=== PATIENT | male | born 1970 | race Two or more races ===

== ENCOUNTER 2022-06-23 01:03 | Inpatient (IN) | payer MEDICAID, OTHER ==
[~2022-06-23] VITALS: Ht 165.1 cm; Wt 66.7 kg
[2022-06-23] MEDS ORDERED: ONDANSETRON HCL/PF 4 MG/2 ML VIAL ONE (01:35)
--- NOTE | 2022-06-23 01:38 | NUR ---
SALINE LOCK AT L AC G20. BLOOD DRAWN AND SENT TO LAB.
--- NOTE | 2022-06-23 01:40 | NUR ---
COVID SWAB COLLECTED AND SENT TO LAB.
--- NOTE | 2022-06-23 01:48 | NUR ---
ARMEN FROM [facility] TO ER BED 5. AAOX4. NOT IN RESP DISTRESS BUT NOTED WITH O2 SAT OF 89% ON RA. PLACED ON O2 VIA NC @ 2LPM NOW SATTING AT 98%. PT WAS BROUGHT IN FOR FEVER WHICH WAS REPORTED @ 101 AT THE [facility], PT WAS GIVEN TYLENOL AND NOW THE TEMP IS 99 ORALLY. PT WAS NOTED TACHYCARDIC IN THE 120s. PT ALSO REPORTS HAVING ABDOMINAL PAIN AND VOMITING. PT WAS PRESENTED WITH ROBERTS CATH INPLACE WHICH WAS CHANGED ON THURSDAY ACCORDING TO THE PATIENT. URINE WAS NOTED CLODY, WITH SEDIMENT AND FOULING SMELLING. HE ALSO HAVE A COLOSTOMY UPON PRESENT, STOMA APPEARS RED AND MOIST. IV SITE WAS STARTED ON THE L WRIST W/ 20G. BLOOD DRAWN AND SENT TO LAB. WAS AT THE BEDSIDE FOR EVAL. PT IS ON MONITOR
[2022-06-23] MEDS ORDERED: PIPERACILLIN /TAZOBACTAM 3.375 G VIAL IV ONE (01:58)
[2022-06-23] MEDS ORDERED: PIPERACILLIN /TAZOBACTAM 3.375 G in IV D5W 50 ML IV ONE (02:00)
[2022-06-23] MEDS ORDERED: IV LR 1000 ML 1,000 ML BAG IV ONE (02:00)
[2022-06-23 02:10] LABS: EOSINOPHILS % (AUTO) 1.3 % (0.0-6.0); HEMATOCRIT 43 % (39-51); HEMOGLOBIN 13.7 g/dL (13.5-17.5); LYMPHOCYTES # (AUTO) 0.5 K/uL (0.8-4.8); LYMPHOCYTES % (AUTO) 3.9 % (20.0-44.0); MEAN CORPUSCULAR HGB CONC 32 g/dl (31.0-36.0); MEAN CORPUSCULAR VOLUME 85 fL (80-96); MONOCYTES # (AUTO) 0.1 K/uL (0.1-1.30); MONOCYTES % (AUTO) 0.9 % (2.0-12.0); NEUTROPHILS % (AUTO) 93.9 % (43.0-81.0); PLATELET COUNT (AUTO) 250 K/uL (150-450); RED BLOOD CELL COUNT(AUTO) 5.03 MIL/uL (4.5-6.0); WHITE BLOOD COUNT (AUTO) 11.7 K/uL (4.3-11.0)
[2022-06-23 02:20] LABS: COLOR,URINE DARK YELLOW (YELLOW)
[2022-06-23 02:21] LABS: PH,URINE 8.5 (5.0-8.0); PROTEIN,URINE 3+ mg/dl (NEGATIVE); UGLUCOSE 4+ mg/dL (NEGATIVE)
[2022-06-23 02:22] LABS: BILIRUBIN,URINE NEGATIVE (NEGATIVE); LEUKOCYTE ESTERASE ,URINE LARGE (NEGATIVE); NITRITE, URINE NEGATIVE (NEGATIVE); UROBILINOGEN,URINE 0.2 EU/dL (0.2)
[2022-06-23 02:23] LABS: BACTERIA,URINE Moderate /HPF (None Seen); CALCIUM, SERUM 9.2 mg/dL (8.5-10.1); CARBON DIOXIDE 21 mmol/L (21-32); CHLORIDE 103 mmol/L (98-107); CREATININE 2.2 mg/dL (0.6-1.3); GLUCOSE 320 mg/dL (74-106); POTASSIUM 3.7 mmol/L (3.5-5.1); SODIUM SERUM 135 mmol/L (136-145); SQUAMOUS EPITHELIAL CELL,UR Many /HPF (None Seen); UREA NITROGEN, BLOOD 46 mg/dL (7-18); WBC,URINE 21-50 /HPF (0-3)
[2022-06-23] MEDS ORDERED: ONDANSETRON HCL/PF 4 MG/2 ML VIAL IV ONE (02:30)
[2022-06-23 02:43] LABS: ALBUMIN 3.2 g/dL (3.4-5.0); ASPARTATE AMINOTRANSFERASE 21 U/L (15-37); BILIRUBIN,DIRECT 0.1 mg/dL (0.0-0.2); BILIRUBIN,TOTAL 0.2 mg/dL (0.2-1.0)
[2022-06-23 02:59] LABS: ALANINE AMINOTRANSFERASE 29 U/L (12-78); ALKALINE PHOSPHATASE 274 U/L (46-116); TOTAL PROTEIN, SERUM 8.6 g/dL (6.4-8.2)
[2022-06-23] MEDS ORDERED: ASPIRIN 325 MG TABLET ONE (03:26)
[2022-06-23] MEDS ORDERED: ASPIRIN 325 MG TABLET PO ONE (03:30)
--- NOTE | 2022-06-23 03:34 | NUR ---
room 321-2
--- NOTE | 2022-06-23 03:51 | NUR ---
report given to amos moore fo grover
--- NOTE | 2022-06-23 04:18 | NUR ---
ordered to change cath but cath of a suprapubic payne cath.
[2022-06-23 04:30] VITALS: BP 124/78
--- NOTE | 2022-06-23 04:30 | NUR ---
RN ADMITTING NOTES ADMITTED A 51/Y MALE TO UNIT 321-2 @ VIA GURNEY ACCOMPANIED BY TRANSPORTER W/ DX SEPSIS & NSTEMI. PT IS BEDBOUND. A/O X 4, ABLE TO MAKE NEEDS KNOWN. ORIENTED TO STAFF AND UNIT. PT ON NASAL CANULA 4LPM OF O2, TOLERATING WELL, BREATHING EVEN AND UNLABORED @ THIS TIME. PT W/ IV ACCESS PRESENT ON L WRIST @ 20G SL, PATENT, INTACT AND FLUSHES WELL WITH NO S/S OF INFILTRATION @ SITE NOTED. LUNG SOUND CLEAR. ABDOMEN IS SOFT AND NON TENDER. PT HAS EXTERNAL MONITOR W/ CURRENT READING OFSINUS TACHY. SKIN IS WARM & DRY. PHOTOS OF SKIN ON PY CHART. IS TAKEN & FILED ON PT CHART. BELONGINGS CHECKED AND SIGNED FOR. NEW ID BAND IS GIVEN AND WORN BY PATIENT. SAFETY MEASURES INITIATED. BED PLACED IN LOWEST AND LOCKED POSITION, SIDE RAILS UP X2, BEDSIDE TABLE AND CALL LIGHT IS EASY REACH. BEDALARM IS ON. WWILL CONTINUE TO MONITOR PATIENT.
--- NOTE | 2022-06-23 04:37 | NUR ---
pt transported to unit on [facility] with EMT and RN at bedside with acls protocol. nad noted.
[2022-06-23] MEDS ORDERED: ACETAMINOPHEN 325 MG TABLET PO PRN ×2 (06:30→09:30)
[2022-06-23] MEDS ORDERED: DEXTROSE 50%-WATER 50 ML DISP.SYRIN IV PRN (06:30)
[2022-06-23] MEDS ORDERED: ONDANSETRON HCL/PF 4 MG/2 ML VIAL IVP PRN (06:30)
--- NOTE | 2022-06-23 07:16 | NUR ---
RN CLOSING NOTES PT IS AWAKE, A/O X 4, FRENCH SPEAKING, RESPONSIVE AND FOLLOWS VERBAL COMMAND. PT ON NASAL CANULA W/ 4LPM O2, TOLERATING WELL, BREATHING EVEN AND UNLABORED AT THIS TIME. PT IS W/ IV ACCESS L WRIST #20G SALINE LOCK, PATENT, INTACT AND FLUSHES WELL W/ NO S/S OF INFILTRATION. PT IS ON TELE MONITOR W/ CURRENT READING SINUS TACHYCHARDIA HR 104. MEDICATION ADMINISTERED PER MD'S ORDER. SAFETY MEASURES IS IN PLACE. BED IN ITS LOWEST AND LOCKED POSITION. SIDE RAILS UP X 2 . BEDSIDE TABLE AND CALL LIGHT IS EASY REACH. WILL ENDORSE TO THE NEXT SHIFT FOR CONTINUITY OF CARE.
[2022-06-23 07:20] VITALS: BP 109/56
--- NOTE | 2022-06-23 07:40 | NUR ---
RN OPENING NOTES PT AWAKE IN BED, A/O X 3-4,RESPONSIVE AND FOLLOWS VERBAL COMMAND. PT ON NASAL CANULA W/ 4LPM O2, TOLERATING WELL, BREATHING EVEN AND UNLABORED AT THIS TIME. PT IS W/ IV ACCESS L WRIST #20G SALINE LOCK, PATENT, INTACT AND FLUSHES WELL W/ NO S/S OF INFILTRATION. PT IS ON TELE MONITOR W/ CURRENT READING SR HR 100. SAFETY MEASURES IS IN PLACE. BED IN ITS LOWEST AND LOCKED POSITION. SIDE RAILS UP X 2 . BEDSIDE TABLE AND CALL LIGHT IS EASY REACH. WILL CONTINUE TO MONITOR.
[2022-06-23] MEDS ORDERED: CRAN425C6 PO (07:42)
[2022-06-23] MEDS ORDERED: ASPI-1169 PO (07:42)
[2022-06-23] MEDS ORDERED: GEMF600T90 PO (07:42)
[2022-06-23] MEDS ORDERED: ALOG25TA2 PO (07:42)
[2022-06-23] MEDS ORDERED: GLUC1KIT IM (07:42)
[2022-06-23] MEDS ORDERED: MULT-447 PO (07:42)
[2022-06-23] MEDS ORDERED: ASCO-352 PO (07:42)
[2022-06-23] MEDS ORDERED: POLY17PO4 PO (07:42)
[2022-06-23] MEDS ORDERED: CHOL100043 PO (07:42)
[2022-06-23] MEDS ORDERED: ACET-868 PO (07:42)
[2022-06-23] MEDS ORDERED: INSU100I26 SQ (07:42)
[2022-06-23] MEDS ORDERED: PANT40TA2 PO (07:42)
[2022-06-23 08:00] VITALS: BP 102/66
--- NOTE | 2022-06-23 08:23 | NUR ---
RN NOTES RECEIVED CRITICAL VALUES FOR TROPONIN LEVEL OF 203, DR. MAGALLON NOTIFIED. AWAITS FURTHER ORDER.
[2022-06-23] MEDS: BLOOD SUGAR DIAGNOSTIC 1 EACH STRIP IN SCH ×4 (08:38→21:37)
[2022-06-23] MEDS ORDERED: ASPIRIN 81 MG TAB.CHEW PO SCH (09:00)
[2022-06-23] MEDS ORDERED: PANTOPRAZOLE 40 MG VIAL IV SCH (09:00)
[2022-06-23] MEDS: ZOSYN IVPB 2.25 G in IV D5W 50ml IV SCH ×3 (09:31→20:29)
[2022-06-23] MEDS: HEPARIN SODIUM, PORCINE 5000 UNITS/1 ML VIAL SQ SCH ×2 (09:49→21:36)
[2022-06-23] MEDS: IV NS 0.9% 1,000 ML IV PRN (10:03)
[2022-06-23] MEDS: INSULIN GLARGINE, 100 UNIT/ML CARTRIDGE SQ SCH (10:54)
[2022-06-23 12:00] VITALS: BP 117/83
--- NOTE | 2022-06-23 12:47 | NUR ---
RN NOTES URINE SAMPLE COLLECTED, STORED IN THE [facility]. NOTIFIED LABORATORY FOR NETWORK TECHNOLOGY INSTRUCTOR
[2022-06-23] MEDS: INSULIN REGULAR, HUMAN 100 UNIT/ML 3 ML VIAL SQ PRN ×3 (12:59→21:47)
[2022-06-23 13:42] LABS: BILIRUBIN,URINE NEGATIVE (NEGATIVE); COLOR,URINE YELLOW (YELLOW); LEUKOCYTE ESTERASE ,URINE 2+ (NEGATIVE); NITRITE, URINE NEGATIVE (NEGATIVE); PROTEIN,URINE 2+ mg/dl (NEGATIVE); UGLUCOSE NEGATIVE (NEGATIVE); UROBILINOGEN,URINE 0.2 EU/dL (0.2)
[2022-06-23 13:56] LABS: BACTERIA,URINE Moderate /HPF (None Seen); SQUAMOUS EPITHELIAL CELL,UR Moderate /HPF (None Seen); WBC,URINE 21-50 /HPF (0-3)
[2022-06-23 14:50] LABS: CREATININE, URINE 37.4 MG/DL (30.0-125.0)
[2022-06-23 16:00] VITALS: BP 96/71
--- NOTE | 2022-06-23 16:26 | NUR ---
RN NOTES BLADDER SCAN DONE WITH 0 ML OUTPUT. SUPRAPUBIC OUTPUT IS 900ML AT THIS TIME. WILL CONTINUE TO MONITOR.
--- NOTE | 2022-06-23 18:25 | NUR ---
RN CLOSING NOTES PT IS AWAKE, A/O X 4, BANGLADESHI SPEAKING, RESPONSIVE AND FOLLOWS VERBAL COMMAND. PT ON NASAL CANULA W/ 4LPM O2, TOLERATING WELL, BREATHING EVEN AND UNLABORED AT THIS TIME. PT IS W/ IV ACCESS L WRIST #20G SALINE LOCK, PATENT, INTACT AND FLUSHES WELL W/ NO S/S OF INFILTRATION. ALL MEDS GIVEN. DRESSING CHANGE, OSTOMY DRESSING CHANGED. SAFETY MEASURES IS IN PLACE. BED IN ITS LOWEST AND LOCKED POSITION. SIDE RAILS UP X 2 . BEDSIDE TABLE AND CALL LIGHT IS EASY REACH. WILL ENDORSE TO THE NEXT SHIFT FOR CONTINUITY OF CARE.
[2022-06-23 20:00] VITALS: BP_SYST 106; BP_SYST 120; BP_DIAS 67; BP_DIAS 68
--- NOTE | 2022-06-23 20:20 | NUR ---
BOILER OPERATOR OPENING NOTE PATIENT SLEEPING IN BED, EASILY AWAKENED, PATIENT ALERT/ORIENTED X 4, MALAY SPEAKING. PATIENT STABLE ON 4 L O2 VIA NASAL CANNULA, NO S/S OF DISTRESS OR SOB NOTED, BREATHING EVEN AND UNLABORED. IV ACCESS ON LEFT WRIST #20G INTACT AND INFUSING NS @ 75 ML/HR. OSTOMY BAG IN PLACE. SUPRAPUBIC CATHETER IN PLACE AND DRAINING URINE BY GRAVITY. SAFETY MEASURES IN PLACE: CALL LIGHT WITHIN REACH, SIDE RAILS UP X 2, BED LOCKED IN LOWEST POSITION, HOB ELEVATED, BED ALARM ON. WILL CONTINUE TO MONITOR PATIENT
[2022-06-23] MEDS: ATORVASTATIN 10 MG TABLET PO SCH (21:33)
[2022-06-24] VITALS (8 sets, daily range): BP systolic 111–170; BP diastolic 71–90
[2022-06-24] MEDS: IV NS 0.9% 1,000 ML IV PRN ×2 (00:03→22:42)
[2022-06-24] MEDS: ZOSYN IVPB 2.25 G in IV D5W 50ml IV SCH ×4 (02:31→19:52)
[2022-06-24 05:41] LABS: BASOPHILS # (AUTO) 0.1 K/uL (0.0-0.2); BASOPHILS % (AUTO) 0.4 % (0.0-2.0); EOSINOPHILS % (AUTO) 2.1 % (0.0-6.0); HEMATOCRIT 35 % (39-51); HEMOGLOBIN 11.1 g/dL (13.5-17.5); LYMPHOCYTES # (AUTO) 1.6 K/uL (0.8-4.8); LYMPHOCYTES % (AUTO) 9.6 % (20.0-44.0); MEAN CORPUSCULAR HGB CONC 32 g/dl (31.0-36.0); MEAN CORPUSCULAR VOLUME 86 fL (80-96); MONOCYTES # (AUTO) 0.6 K/uL (0.1-1.30); MONOCYTES % (AUTO) 3.7 % (2.0-12.0); NEUTROPHILS # (AUTO) 13.8 K/uL (1.8-8.9); NEUTROPHILS % (AUTO) 84.2 % (43.0-81.0); PLATELET COUNT (AUTO) 227 K/uL (150-450); RED BLOOD CELL COUNT(AUTO) 4.11 MIL/uL (4.5-6.0); WHITE BLOOD COUNT (AUTO) 16.4 K/uL (4.3-11.0)
[2022-06-24 06:15] LABS: CALCIUM, SERUM 8.6 mg/dL (8.5-10.1); CREATININE 1.8 mg/dL (0.6-1.3); MAGNESIUM 2.1 mg/dL (1.8-2.4); POTASSIUM 3.4 mmol/L (3.5-5.1)
--- NOTE | 2022-06-24 06:26 | NUR ---
BUREAU DIRECTOR CLOSING NOTE PATIENT AWAKE IN BED, ALERT/ORIENTED X 4, PT ABLE TO MAKE NEEDS KNOWN, PRIMARILY PASHTO SPEAKING. PATIENT STABLE ON 4 LPM OF O2 VIA NASAL CANNULA, NO S/S OF DISTRESS OR SOB NOTED, BREATHING EVEN AND UNLABORED. PATIENT ON EXTERNAL LABORATORY ASSOCIATE READING SINUS RHYTHM, HR: 82. NO SIGNIFICANT CHANGES THIS SHIFT, PT SLEPT WELL THROUGH THE NIGHT, MEDICATIONS GIVEN ORDERED, PT NEEDS MET THROUGH THE NIGHT. COLOSTOMY BAG CHANGED THIS AM. SUPRAPUBIC ROBERTS INTACT AND DRAINING YELLOW URINE BY GRAVITY, OUTPUT 1200 ML. IV ACCESS ON LEFT WRIST #20G INTACT AND INFUSING NS @ 75 ML/HR. CRITICAL LAB OF TROPONIN 2240, NOTIFIED SERVER CASHIER MD CELESTINE PEDRAZA, AWAITING ORDERS, WILL ENDORSE TO SERG RN. SAFETY MEASURES IN PLACE: CALL LIGHT WITHIN REACH, SIDE RAILS UP X 2, BED LOCKED IN LOWEST POSITION, HOB ELEVATED, BED ALARM ON. WILL ENDORSE TO DAYSHIFT RN FOR CONTINUITY OF CARE
[2022-06-24] MEDS: BLOOD SUGAR DIAGNOSTIC 1 EACH STRIP IN SCH ×4 (06:39→18:25)
[2022-06-24] MEDS: INSULIN REGULAR, HUMAN 100 UNIT/ML 3 ML VIAL SQ PRN ×2 (06:42→18:33)
--- NOTE | 2022-06-24 07:15 | NUR ---
HIGH SCHOOL COACH OPENING NOTE PATIENT SLEEPING IN BED, EASILY AROUSED, A/O X 4, MONTENEGRIN SPEAKING, HAND WOODWORKING SANDER HAM TRIMMER. PATIENT STABLE ON 4 L O2 VIA NASAL CANNULA, NO S/S OF DISTRESS OR SOB NOTED, BREATHING EVEN AND UNLABORED. IV ACCESS ON LEFT WRIST #20G INTACT AND INFUSING NS @ 75 ML/HR. OSTOMY BAG IN PLACE. SUPRAPUBIC CATHETER IN PLACE AND DRAINING URINE BY GRAVITY. SAFETY MEASURES IN PLACE: CALL LIGHT WITHIN REACH, SIDE RAILS UP X 2, BED LOCKED IN LOWEST POSITION, HOB ELEVATED, BED ALARM ON. WILL CONTINUE TO MONITOR PATIENT
[2022-06-24] MEDS: PANTOPRAZOLE 40 MG TABLET.DR PO SCH (08:44)
[2022-06-24] MEDS: ASPIRIN 81 MG TAB.CHEW PO SCH (08:44)
[2022-06-24] MEDS: HEPARIN SODIUM, PORCINE 5000 UNITS/1 ML VIAL SQ SCH ×2 (08:54→21:15)
[2022-06-24] MEDS: INSULIN GLARGINE, 100 UNIT/ML CARTRIDGE SQ SCH (09:13)
[2022-06-24] MEDS ORDERED: POTASSIUM CL. PREMIX PERIPHER. 50 ML IV SCH (11:30)
--- NOTE | 2022-06-24 18:34 | NUR ---
NURSE PRACTITIONER MANAGER CLOSING NOTE PATIENT AWAKE IN BED, A/O X 4, PT ABLE TO MAKE NEEDS KNOWN, PRIMARILY MAORI SPEAKING. PATIENT STABLE ON 4 LPM OF O2 VIA NASAL CANNULA, NO S/S OF DISTRESS OR SOB NOTED, BREATHING EVEN AND UNLABORED. PATIENT ON EXTERNAL RIVET HOLE PUNCHER READING SINUS RHYTHM, HR: 85. MEDICATIONS GIVEN ORDERED AND PT'S NEED MET THROUGH THE DAY. COLOSTOMY BAG CHANGED THIS AM. SUPRAPUBIC ROBERTS INTACT AND DRAINING YELLOW URINE BY GRAVITY, OUTPUT 1800 ML. IV ACCESS ON LEFT WRIST #20G INTACT AND INFUSING NS @ 75 ML/HR. SAFETY MEASURES IN PLACE: CALL LIGHT WITHIN REACH, SIDE RAILS UP X 2, BED LOCKED IN LOWEST POSITION, HOB ELEVATED, BED ALARM ON. [facility] FOR [facility]ITY OF CARE Addendum: 06/24/22 at 1839 by LUCÍA MICHELE JR, RN WILL ENDORSED TO MUSIC TYPOGRAPHER NURSE FOR JOSEFA.
--- NOTE | 2022-06-24 19:30 | NUR ---
PERINATAL TECHNICIAN OPENING NOTE PATIENT IN BED, AWAKE; ALERT AND ORIENTED X 4, KOREAN SPEAKING. ON OXYGEN VIA NASAL CANNULA AT 4LPM TOLERATING WELL, NO S/S OF DISTRESS NOTED, BREATHING EVENLY AND UNLABORED. WITH IV ACCESS ON LEFT WRIST G20 INTACT AND PATENT, INFUSING NORMAL SALINE AT 75 ML/HR. COLOSTOMY BAG IN PLACE DRAINING TO SOFT BROWN STOOL; SUPRAPUBIC CATHETER IN PLACE AND DRAINING TO YELLOW COLORED URINE BY GRAVITY; ENCOURAGED VERBALIZATION OF NEEDS; SAFETY MEASURES IMPLEMENTED; CALL LIGHT WITHIN REACH, SIDE RAILS UP X 2, BED LOCKED IN LOWEST POSITION, HOB ELEVATED, BED ALARM ON. WILL CONTINUE TO MONITOR THROUGHOUT SHIFT
[2022-06-24] MEDS: ATORVASTATIN 10 MG TABLET PO SCH (21:15)
[2022-06-25] MEDS: ZOSYN IVPB 2.25 G in IV D5W 50ml IV SCH ×4 (01:38→20:02)
[2022-06-25 05:26] VITALS: BP 159/90
[2022-06-25 06:18] LABS: CALCIUM, SERUM 8.8 mg/dL (8.5-10.1); CREATININE 1.7 mg/dL (0.6-1.3); POTASSIUM 3.5 mmol/L (3.5-5.1)
[2022-06-25] MEDS: INSULIN REGULAR, HUMAN 100 UNIT/ML 3 ML VIAL SQ PRN ×4 (06:26→21:35)
[2022-06-25 06:27] LABS: BASOPHILS # (AUTO) 0.1 K/uL (0.0-0.2); BASOPHILS % (AUTO) 0.6 % (0.0-2.0); EOSINOPHILS % (AUTO) 3.8 % (0.0-6.0); HEMATOCRIT 36 % (39-51); HEMOGLOBIN 11.6 g/dL (13.5-17.5); LYMPHOCYTES # (AUTO) 1.3 K/uL (0.8-4.8); LYMPHOCYTES % (AUTO) 13.3 % (20.0-44.0); MEAN CORPUSCULAR HGB CONC 32 g/dl (31.0-36.0); MEAN CORPUSCULAR VOLUME 86 fL (80-96); MONOCYTES # (AUTO) 0.5 K/uL (0.1-1.30); MONOCYTES % (AUTO) 4.7 % (2.0-12.0); NEUTROPHILS # (AUTO) 7.7 K/uL (1.8-8.9); NEUTROPHILS % (AUTO) 77.6 % (43.0-81.0); PLATELET COUNT (AUTO) 226 K/uL (150-450); RED BLOOD CELL COUNT(AUTO) 4.26 MIL/uL (4.5-6.0)
--- NOTE | 2022-06-25 06:30 | NUR ---
GLOBAL IMPLEMENTATION MANAGER NOTE ACCUCHECK WAS DONE AND PATIENT'S BLOOD SUGAR WAS 222. 4 UNITS OF INSULIN WAS GIVEN PER SLIDING SCALE. PATIENT TOLERATED WELL.
[2022-06-25] MEDS: BLOOD SUGAR DIAGNOSTIC 1 EACH STRIP IN SCH ×4 (06:32→21:33)
--- NOTE | 2022-06-25 06:47 | NUR ---
REAL ESTATE LOAN PROCESSOR CLOSING NOTE PATIENT IN BED; ALERT AND ORIENTED X 4, CROATIAN SPEAKING. ON OXYGEN VIA NASAL CANNULA AT 4LPM TOLERATING WELL WITH NO SIGNS AND SYMPTOMS OF DISTRESS NOTED, BREATHING EVENLY AND UNLABORED; HOOKED TO POLLUTION CONTROL ENGINEER CURRENTLY SINUS RHYTHM 70-80S BPM; WITH IV ACCESS ON LEFT WRIST G20 INTACT AND PATENT INFUSING NORMAL SALINE AT 75 ML/HR; WITH COLOSTOMY BAG IN PLACE DRAINING TO SOFT BROWN STOOL; SUPRAPUBIC CATHETER IN PLACE DRAINING TO YELLOW COLORED URINE; ADMINISTERED MEDICATIONS PRESCRIBED; PATIENT'S NEEDS ATTENDED; MONITORED PATIENT ACCORDINGLY; SAFETY MEASURES IMPLEMENTED; CALL LIGHT WITHIN REACH, SIDE RAILS UP X 2, BED LOCKED IN LOWEST POSITION, HOB ELEVATED, ALARM BED ON; WILL CONTINUE TO MONITOR THROUGHOUT SHIFT
--- NOTE | 2022-06-25 07:30 | NUR ---
PRODUCT TRANSFER PUMPER OPENING NOTES RECEIVED PT IN BED, AWAKE. A/O X 4, ESTONIAN SPEAKER. ABLE TO MAKE NEEDS KNOWN. NO C/O PAIN/DISCOMFORT AT THIS TIME. ON O2 VIA NC AT 4LPM, NO SIGN OF ACUTE RESPIRATORY DISTRESS. ON CRIME LABORATORY ANALYST WITH CURRENT READING OF SR-82, NO SIGN OF CARDIAC DISTRESS. IV ACCESS ON THE LEFT WRIST #20G WITH ONGOING IVF NS AT 75ML/HR INFUSING WELL. WITH SUPRAPUBIC CATHETER DRAINING CLEAR YELLOW URINE. WITH COLOSTOMY AT LLQ OF ABDOMEN. SAFETY MEASURES IN PLACE: BED LOCKED AND IN LOWEST POSITION, CALL LIGHT AND TRAY TABLE WITHIN EASY REACH, SIDE RAILS X 3. WILL CONTINUE TO MONITOR.
[2022-06-25] MEDS: PANTOPRAZOLE 40 MG TABLET.DR PO SCH (07:50)
[2022-06-25 08:00] VITALS: BP 158/94
--- NOTE | 2022-06-25 08:05 | NUR ---
RN NOTES PT VERBALIZED THAT HIS HEAD AND NECK IS PAINFUL, TYLENOL 650MG PO PRN GIVEN AT 0801. WILL CONTINUE TO MONITOR. Addendum: 06/25/22 at 1613 by Citlalli Victor RN DOCUMENTATION ERROR, DISREGARD.
[2022-06-25] MEDS: ASPIRIN 81 MG TAB.CHEW PO SCH (08:36)
[2022-06-25] MEDS: HEPARIN SODIUM, PORCINE 5000 UNITS/1 ML VIAL SQ SCH ×2 (08:38→21:07)
[2022-06-25] MEDS: INSULIN GLARGINE, 100 UNIT/ML CARTRIDGE SQ SCH (09:41)
[2022-06-25 12:00] VITALS: BP 155/95
[2022-06-25] MEDS: IV NS 0.9% 1,000 ML IV PRN (15:22)
[2022-06-25 16:00] VITALS: BP 148/93
--- NOTE | 2022-06-25 18:35 | NUR ---
DISTRICT CAPTAIN CLOSING NOTES PT RESTING IN BED. A/O X 4, PERSIAN SPEAKER. ABLE TO MAKE NEEDS KNOWN. DID NOT C/O PAIN/DISCOMFORT WITHIN THE SHIFT. ON O2 VIA NC AT 4LPM, TOLERATED WELL. ON PLASTICATOR WITH CURRENT READING OF SR-78, NO SIGN OF CARDIAC DISTRESS. IV ACCESS ON THE LEFT WRIST #20G WITH ONGOING IVF NS AT 75ML/HR INFUSING WELL. WITH SUPRAPUBIC CATHETER DRAINING CLEAR YELLOW URINE. WITH COLOSTOMY AT LLQ OF ABDOMEN. NEEDS ATTENDED. SAFETY MEASURES IN PLACE: BED LOCKED AND IN LOWEST POSITION, CALL LIGHT AND TRAY TABLE WITHIN EASY REACH, SIDE RAILS X 3. WILL ENDORSED JOSEFA TO BOAT FINISHER.
--- NOTE | 2022-06-25 19:30 | NUR ---
ANTIQUE REPAIRER OPENING NOTE RECEIVED PATIENT IN BED, WITH HOB ELEVATED, ALERT AND ORIENTED X4. ABLE TO COMMUNICATE NEEDS WITH THE STAFFS. AFEBRILE AND NOT IN ANY FORM OF ACUTE DISTRESS. ON O121 INHALATION VIA NASAL CANNULA AT 4LPM. WITH IV ACCESS ON L WRIST 20G RUNNING WITH NS AT 75ML/HR. WITH SUPRAPUBIC CATHETER DRAINING WELL WITH YELLOW URINE OUTPUT. SAFETY MEASURES IN PLACE. KEPT BED IN LOCKED AND IN LOW POSITION. SIDE RAILS UP X2. ADVISED TO USE THE CALL LIGHT WHEN IN NEED OF ASSISTANCE.
[2022-06-25 20:00] VITALS: BP 157/79
[2022-06-25] MEDS: ATORVASTATIN 10 MG TABLET PO SCH (21:06)
[2022-06-26] VITALS (12 sets, daily range): BP systolic 123–164; BP diastolic 70–90
[2022-06-26] MEDS: ZOSYN IVPB 2.25 G in IV D5W 50ml IV SCH ×4 (01:03→20:51)
[2022-06-26] MEDS: IV NS 0.9% 1,000 ML IV PRN ×2 (05:03→13:47)
--- NOTE | 2022-06-26 06:24 | NUR ---
RESIDENTIAL REAL ESTATE SALES MANAGER CLOSING NOTE PATIENT IN BED, WITH HOB ELEVATED,ASLEEP BUT EASY TO AROUSE AND RESPONSIVE. ALERT AND ORIENTED X4. ABLE TO COMMUNICATE NEEDS WITH THE STAFFS. AFEBRILE AND NOT IN ANY FORM OF ACUTE DISTRESS. ON O2 INHALATION VIA NASAL CANNULA AT 4LPM. ON TELE MONITORING WITH CURRENT READING OF SR 81. WITH IV ACCESS ON L WRIST 20G RUNNING WITH NS AT 75ML/HR. WITH SUPRAPUBIC CATHETER DRAINING WELL WITH YELLOW URINE OUTPUT, NO HEMATURIA OR SEDIMENTS NOTED. WITH COLOSTOMY ON LLQ ABDOMEN, NOTED WITH SMALL AMOUNT OF BROWN STOOL. MONITORED FOR ANY S/SX. OF HYPO/HYPERGLYCEMIA. MEDICATED ORDERED. KEPT ON NPO POST MIDNIGHT FOR SCHEDULED LEFT HEART CATHETERIZATION WITH DR. CRUM. CONSENT SIGNED AND SECURED. SAFETY MEASURES IN PLACE. KEPT BED IN LOCKED AND IN LOW POSITION. SIDE RAILS UP X2. ADVISED TO USE THE CALL LIGHT WHEN IN NEED OF ASSISTANCE. ALL NURSING NEEDS ATTENDED. ENDORSED TO INCOMING SHIFT FOR CONTINUITY OF CARE.
[2022-06-26 06:34] LABS: BASOPHILS # (AUTO) 0.1 K/uL (0.0-0.2); BASOPHILS % (AUTO) 0.7 % (0.0-2.0); HEMATOCRIT 39 % (39-51); HEMOGLOBIN 12.7 g/dL (13.5-17.5); LYMPHOCYTES # (AUTO) 1.4 K/uL (0.8-4.8); LYMPHOCYTES % (AUTO) 17.2 % (20.0-44.0); MEAN CORPUSCULAR HGB CONC 33 g/dl (31.0-36.0); MEAN CORPUSCULAR VOLUME 85 fL (80-96); MONOCYTES # (AUTO) 0.3 K/uL (0.1-1.30); MONOCYTES % (AUTO) 4.1 % (2.0-12.0); NEUTROPHILS # (AUTO) 6.1 K/uL (1.8-8.9); PLATELET COUNT (AUTO) 249 K/uL (150-450); RED BLOOD CELL COUNT(AUTO) 4.58 MIL/uL (4.5-6.0); WHITE BLOOD COUNT (AUTO) 8.3 K/uL (4.3-11.0)
[2022-06-26] MEDS: BLOOD SUGAR DIAGNOSTIC 1 EACH STRIP IN SCH ×4 (06:43→22:10)
[2022-06-26 06:48] LABS: CALCIUM, SERUM 8.9 mg/dL (8.5-10.1); CREATININE 1.8 mg/dL (0.6-1.3); POTASSIUM 3.7 mmol/L (3.5-5.1)
[2022-06-26] MEDS: PANTOPRAZOLE 40 MG TABLET.DR PO SCH (07:30)
--- NOTE | 2022-06-26 07:37 | NUR ---
RN OPENING NOTE PATIENT AWAKE IN BED RESTING, A/O X 4. NO S/S OF PAIN NOTED AT THIS TIME. ON 4L OXYGEN VIA NC, BREATHING EVEN UNLABORED, NO DISTRESS OR SHORTNESS OF BREATH NOTED AT THIS TIME. IV ACCESS L WRIST #20G, INTACT PATENT AND FLUSHING WELL. PATIENT WITH EXTERNAL PLASMA SPECIALIST WITH CURRENT READING OF SR AND HR OF 81. PATIENT HAVE A ROBERTS CATHETER IN PLACE AND DRAINING WELL. PATIENT HAVE COLOSTOMY ON LLQ, IN PLACE. FALL AND SAFETY MEASURES IN PLACE, BED ALARM ON, BED IN LOW AND LOCK POSITION, CALL LIGHT AND TABLE WITHIN EASY REACH, SIDE RAILS UP X2. WILL CONTINUE TO MONITOR.
[2022-06-26] MEDS: INSULIN GLARGINE, 100 UNIT/ML CARTRIDGE SQ SCH (08:02)
[2022-06-26] MEDS: ASPIRIN 81 MG TAB.CHEW PO SCH (08:02)
[2022-06-26] MEDS ORDERED: SECONDARY IV SET 1 EA INFUS.SET MC ONE (08:38)
[2022-06-26] MEDS ORDERED: IV NS 0.9% 1,000 ML ONE (08:38)
[2022-06-26] MEDS ORDERED: NITROGLYCERIN IN 5 % DEXTROSE 250 ML IV ONE (08:39)
[2022-06-26] MEDS ORDERED: IODIXANOL 150 ML IV ONE ×2 (08:39→10:33)
[2022-06-26] MEDS ORDERED: LIDOCAINE 1% INJ 50 ML MDV IJ ONE (08:39)
[2022-06-26] MEDS: HEPARIN SODIUM, PORCINE 5000 UNITS/1 ML VIAL SQ SCH ×2 (09:00→21:33)
--- NOTE | 2022-06-26 09:15 | NUR ---
RN NOTE PATIENT IS NOT IN THE ROOM, PATIENT WENT FOR A LEFT HEART CANCERIZATION POSSIBLE PCI, WITH DR. OLIVEIRA.
--- NOTE | 2022-06-26 09:31 | NUR ---
RN NOTE PATIENT SCHEDULE FOR LEFT HEART CATHETERIZATION TODAY, PATIENT'S 0900 HEPARIN WAS NOT ADMINISTERED.
[2022-06-26] MEDS ORDERED: FENTANYL PF 100MCG/2ML AMPUL ONE (09:35)
[2022-06-26] MEDS ORDERED: MIDAZOLAM HCL 2 MG/2ML VIAL ONE (09:35)
[2022-06-26] MEDS ORDERED: IODIXANOL 320MG/ML 50 ML IV ONE ×3 (10:02→10:34)
[2022-06-26] MEDS ORDERED: HEPARIN SODIUM, PORCINE 5000 UNITS/1 ML VIAL ONE (10:02)
[2022-06-26] MEDS ORDERED: hydrALAZINE HCL IV 20 MG VIAL ONE (10:02)
[2022-06-26] MEDS ORDERED: TICAGRELOR 90 MG TABLET PO ONE (10:22)
--- NOTE | 2022-06-26 10:30 | NUR ---
RN NOTE PATIENT WAS TRANSFERRED TO ICU AFTER LEFT HEART CATHETERIZATION. REPORT WAS GIVEN TO ICU NURSE AND PATIENT BELONGINGS WERE GIVEN. CHARGE NURSE AWARE.
[2022-06-26] MEDS: INSULIN REGULAR, HUMAN 100 UNIT/ML 3 ML VIAL SQ PRN ×3 (11:47→22:11)
[2022-06-26] MEDS: TICAGRELOR 90 MG TABLET PO SCH (16:30)
--- NOTE | 2022-06-26 19:45 | NUR ---
RN notes Received report from ICU nurse URSZULA Gonzales.
--- NOTE | 2022-06-26 20:13 | NUR ---
RN NOTES 1100 PT TRANSFERRED FROM CARDIAC COMPUTER GRAPHICS ILLUSTRATOR. PT STABLE, SURGICAL SITE INTACT, NO BLEEDING NOTED. 1999 PT TRANSFERRED TO [facility]. REPORT GIVEN TO ONCOMING NURSE FOR CONTINUATION OF CARE. PT IS STABLE, SURGICAL SITE STILL INTACT, NO BLEEDING NOTED. NO COMPLAINT OF PAIN AT THIS TIME.
--- NOTE | 2022-06-26 20:20 | NUR ---
RN opening notes Received Pt from URSZULA Gonzales. Pt came from ICU. Pt is alert and orientedX4. Pt speaks Amharic and able to make needs known. S/P L heart cath with Dr. Merchant. R femoral dressing is C/D/I. IV site at L wrist # 20 is clean, intact and infusing well NS@ 75 ml/hr. Tele monitor showed SR. Suprapubic cath is inplaced and draining yellow urine. Colostomy on LLQ is inplaced. Reorient Pt to the room and the use of call light. Pt verbalize understanding. Safety precautions is maintained. Bed at low position, brakes locked, side rails upX3, hob elevated, bed alarm is on and call light is within reach. Will continue to monitor.
[2022-06-26] MEDS: ATORVASTATIN 10 MG TABLET PO SCH (21:34)
--- NOTE | 2022-06-26 22:12 | NUR ---
RN notes Pt's blood sugar HS 94. Held coverage per level ordered. snacks is given with apple juice. will continue to monitor.
[2022-06-27] VITALS: BP 133/79
[2022-06-27] MEDS: ZOSYN IVPB 2.25 G in IV D5W 50ml IV SCH ×4 (02:46→19:45)
[2022-06-27] MEDS: IV NS 0.9% 1,000 ML IV PRN (03:13)
[2022-06-27 04:00] VITALS: BP 158/86
[2022-06-27] MEDS: BLOOD SUGAR DIAGNOSTIC 1 EACH STRIP IN SCH ×4 (06:34→21:17)
[2022-06-27] MEDS: INSULIN REGULAR, HUMAN 100 UNIT/ML 3 ML VIAL SQ PRN ×4 (06:34→21:18)
[2022-06-27 06:36] LABS: BASOPHILS % (AUTO) 0.4 % (0.0-2.0); EOSINOPHILS % (AUTO) 1.7 % (0.0-6.0); HEMATOCRIT 38 % (39-51); HEMOGLOBIN 12.2 g/dL (13.5-17.5); LYMPHOCYTES # (AUTO) 1.4 K/uL (0.8-4.8); LYMPHOCYTES % (AUTO) 11.4 % (20.0-44.0); MEAN CORPUSCULAR HGB CONC 32 g/dl (31.0-36.0); MEAN CORPUSCULAR VOLUME 84 fL (80-96); MONOCYTES # (AUTO) 0.4 K/uL (0.1-1.30); MONOCYTES % (AUTO) 3.2 % (2.0-12.0); NEUTROPHILS # (AUTO) 10.4 K/uL (1.8-8.9); NEUTROPHILS % (AUTO) 83.3 % (43.0-81.0); PLATELET COUNT (AUTO) 282 K/uL (150-450); RED BLOOD CELL COUNT(AUTO) 4.57 MIL/uL (4.5-6.0); WHITE BLOOD COUNT (AUTO) 12.5 K/uL (4.3-11.0)
[2022-06-27] MEDS: PANTOPRAZOLE 40 MG TABLET.DR PO SCH (06:36)
--- NOTE | 2022-06-27 06:49 | NUR ---
RN closing notes Pt is resting in bed comfortably. Pt is alert and orientedX4. Pt speaks Polish and able to make needs known. On room air. No SOB. No S/s of distress noted. R femoral dressing is C/D/I. IV site at L wrist # 20 is clean, intact and infusing well NS@ 75 ml/hr. Tele monitor showed SR. Suprapubic cath is inplaced and draining yellow urine. Colostomy on LLQ is inplaced. Kept Pt clean, dry and comfortable. Safety precautions is maintained. Bed at low position, brakes locked, side rails upX3, hob elevated, bed alarm is on and call light is within reach. Will endorse to am nurse for JOSEFA.
--- NOTE | 2022-06-27 07:15 | NUR ---
DREDGE PIPEMAN OPENING NOTES RECEIVED PT IN BED, AWAKE. A/O X 4, ARABIC SPEAKER. ABLE TO MAKE NEEDS KNOWN. DENIED PAIN NOR DISCOMFORT AT THIS TIME. ON ROOM AIR BREATHING WITHOUT ANY DIFFICULTY, NO SIGN OF ACUTE RESPIRATORY DISTRESS. ON CASE PREPARER AND LINER WITH CURRENT READING OF SR-81, NO SIGN OF CARDIAC DISTRESS. IV ACCESS ON THE LEFT WRIST #20G WITH ONGOING IVF NS AT 75ML/HR INFUSING WELL. WITH SUPRAPUBIC CATHETER DRAINING CLEAR YELLOW URINE. WITH COLOSTOMY AT LLQ OF ABDOMEN, CLEAN. SAFETY MEASURES IN PLACE: BED LOCKED AND IN LOWEST POSITION, CALL LIGHT AND TRAY TABLE WITHIN EASY REACH, SIDE RAILS X 3. WILL CONTINUE TO MONITOR.
[2022-06-27 07:47] LABS: CALCIUM, SERUM 9.1 mg/dL (8.5-10.1); CREATININE 1.5 mg/dL (0.6-1.3); POTASSIUM 3.4 mmol/L (3.5-5.1)
[2022-06-27 08:00] VITALS: BP 173/84
[2022-06-27] MEDS: TICAGRELOR 90 MG TABLET PO SCH ×2 (08:25→17:15)
[2022-06-27] MEDS: ASPIRIN 81 MG TAB.CHEW PO SCH (08:25)
[2022-06-27] MEDS: HEPARIN SODIUM, PORCINE 5000 UNITS/1 ML VIAL SQ SCH ×2 (08:36→20:51)
[2022-06-27] MEDS: INSULIN GLARGINE, 100 UNIT/ML CARTRIDGE SQ SCH (08:36)
[2022-06-27] MEDS ORDERED: POTASSIUM CHLORIDE 20 MEQ TAB.PRT.SR PO ONE (10:00)
--- NOTE | 2022-06-27 11:00 | NUR ---
RN NOTES - TELEMETRY DC'D- BOX SENT BACK TO [facility]
[2022-06-27] MEDS: METOPROLOL TARTRATE 25 MG TABLET PO SCH ×2 (13:14→20:49)
[2022-06-27 16:00] VITALS: BP 136/76
--- NOTE | 2022-06-27 17:00 | NUR ---
URSZULA NOTES - COLLECTED COVID SPECIMEN AND SENT TO THE LAB
--- NOTE | 2022-06-27 19:15 | NUR ---
MS RN CLOSING NOTES PT IN BED, AWAKE. A/O X 4, KHMER SPEAKER. ABLE TO MAKE NEEDS KNOWN. DENIED PAIN NOR DISCOMFORT AT THIS TIME. STILL ON ROOM AIR BREATHING WITHOUT ANY DIFFICULTY, NO SIGN OF ACUTE RESPIRATORY DISTRESS. NE IV ACCESS ON THE LEFT FA #22G SL, PATENT AND FLUSHING WELL. WITH SUPRAPUBIC CATHETER DRAINED CLEAR YELLOW URINE ABOUT 900 ML. WITH COLOSTOMY AT LLQ OF ABDOMEN, CLEAN. ALL DUE MEDS GIVEN, ALL NEEDS MET. SAFETY MEASURES MAINTAINED: BED LOCKED AND IN LOWEST POSITION, CALL LIGHT AND TRAY TABLE WITHIN EASY REACH, SIDE RAILS X 3. ENDORSED TO INTERACTIVE ART DIRECTOR NURSE.
--- NOTE | 2022-06-27 19:30 | NUR ---
MS RN OPENING NOTES RECEIVED PT IN BED, AWAKE. A/O X 4, NORWEGIAN SPEAKER. ABLE TO MAKE NEEDS KNOWN. DENIED PAIN AT THIS TIME. ON ROOM AIR BREATHING EVEN AND UNLABORED.NO SIGN OF ACUTE RESPIRATORY DISTRESS. IV ACCESS ON THE LEFT FA #22 G INTACT AND PATENT. WITH SUPRAPUBIC CATHETER DRAINING CLEAR YELLOW URINE. WITH COLOSTOMY AT LLQ OF ABDOMEN, CLEAN , DRY AND SECURE IN PLACE.ALL SAFETY MEASURES IN PLACE: BED LOCKED AND IN LOWEST POSITION, CALL LIGHT AND TRAY TABLE WITHIN EASY REACH, SIDE RAILS X 3. WILL CONTINUE TO MONITOR.
[2022-06-27 20:00] VITALS: BP 142/87
[2022-06-27] MEDS: ATORVASTATIN 10 MG TABLET PO SCH (21:09)
[2022-06-28] MEDS: ZOSYN IVPB 2.25 G in IV D5W 50ml IV SCH ×3 (02:00→14:08)
[2022-06-28] MEDS: BLOOD SUGAR DIAGNOSTIC 1 EACH STRIP IN SCH ×2 (06:16→12:07)
[2022-06-28] MEDS: INSULIN REGULAR, HUMAN 100 UNIT/ML 3 ML VIAL SQ PRN ×2 (06:18→12:09)
--- NOTE | 2022-06-28 06:38 | NUR ---
MS RN CLOSING NOTES PT IN BED, AWAKE. A/O X 4, GERMAN SPEAKER. ABLE TO MAKE NEEDS KNOWN. DENIED PAIN AT THIS TIME. ON ROOM AIR BREATHING EVEN AND UNLABORED.NO SIGN OF ACUTE RESPIRATORY DISTRESS. IV ACCESS ON THE LEFT FA #22 G INTACT AND PATENT. WITH SUPRAPUBIC CATHETER DRAINING CLEAR YELLOW URINE.URINE OUTPUT NOTED 900 ML. WITH COLOSTOMY AT LLQ OF ABDOMEN, CLEAN , DRY AND SECURE IN PLACE. ALL DUE MEDS GIVEN ORDERED.ALL SAFETY MEASURES IN PLACE: BED LOCKED AND IN LOWEST POSITION, CALL LIGHT AND TRAY TABLE WITHIN EASY REACH, SIDE RAILS X 3. WILL ENDORSE FOR JOSEFA.
--- NOTE | 2022-06-28 07:10 | NUR ---
MS RN OPENING NOTES RECEIVED PT IN BED, AWAKE. A/O X 4, NEPALI SPEAKING WITH CAP MAKER DIRECTOR OF CORPORATE RESPONSIBILITY. ABLE TO MAKE NEEDS KNOWN. DENIED PAIN AT THIS TIME. ON ROOM AIR BREATHING EVEN AND UNLABORED.NO SIGN OF ACUTE RESPIRATORY DISTRESS. IV ACCESS ON THE LEFT FA #22 G INTACT AND PATENT. WITH SUPRAPUBIC CATHETER DRAINING CLEAR YELLOW URINE. WITH COLOSTOMY AT LLQ OF ABDOMEN, CLEAN , DRY AND SECURE IN PLACE. ALL SAFETY MEASURES IN PLACE: BED LOCKED AND IN LOWEST POSITION, CALL LIGHT AND TRAY TABLE WITHIN EASY REACH, SIDE RAILS X 3. WILL CONTINUE TO MONITOR THE PATIENT.
[2022-06-28] MEDS: PANTOPRAZOLE 40 MG TABLET.DR PO SCH (07:53)
[2022-06-28] MEDS: TICAGRELOR 90 MG TABLET PO SCH (08:43)
[2022-06-28 08:44] VITALS: BP 124/70
[2022-06-28] MEDS: METOPROLOL TARTRATE 25 MG TABLET PO SCH (08:44)
[2022-06-28] MEDS: ASPIRIN 81 MG TAB.CHEW PO SCH (08:44)
[2022-06-28] MEDS: HEPARIN SODIUM, PORCINE 5000 UNITS/1 ML VIAL SQ SCH (08:45)
[2022-06-28] MEDS: INSULIN GLARGINE, 100 UNIT/ML CARTRIDGE SQ SCH (09:12)
[2022-06-28] MEDS ORDERED: ATOR10TA PO (09:24)
[2022-06-28] MEDS ORDERED: TICA90TA PO (09:24)
[2022-06-28] MEDS ORDERED: METO25TA20 PO (09:24)
[2022-06-28] MEDS ORDERED: LEVO500T90 PO (09:26)
[2022-06-28 13:07] LABS: *ANA ANTI-CENTROMERE B AB <0.2 AI (0.0-0.9); *ANA ANTI-DNA(DS) AB, QN <1 IU/mL (0-9); *ANA ANTI-JO-1 <0.2 AI (0.0-0.9); *ANA ANTICHROMATIN ANTIBODY <0.2 AI (0.0-0.9); *ANA RNP ANTIBODIES <0.2 AI (0.0-0.9); *ANA SJOGREN'S ANTI-SS-A <0.2 AI (0.0-0.9); *ANA SJOGREN'S ANTI-SS-B <0.2 AI (0.0-0.9); *ANAANTI-SCLERODERMA-70 AB <0.2 AI (0.0-0.9); *ANASMITH AB <0.2 AI (0.0-0.9)
--- NOTE | 2022-06-28 15:02 | NUR ---
DISCHARGED PATIENT TO [facility] FOR CONTINUITY OF CARE. PATIENT IN STABLE CONDITION A/O X4. ST LUCIAN SPEAKING WITH SANDBLASTER GLASS CONVERTER SKIMMER. ALL BELONGINGS ACCOUNTED FOR. DISCHARGE INSTRUCTIONS DISCUSSED WITH THE PATIENT BOTH VERBALLY AND IN WRITTEN FORM. EXIT FOLDER HANDED TO diesel service apprentice. PATIENT LEFT THE UNIT AT 1501 VIA GURNEY WITH 2 diesel service apprentice. CHARGE NURSE AWARE OF THE DISCHARGE.
== END 2022-06-28 15:04 | DRG 951 ==
LOC: ER 01:06 → TELE 03:35 → ICU 06-26 10:00 → TELE 06-26 20:08 → MED 06-27 09:50
PROVIDERS: ADMIT Internal Medicine; ATTEND Internal Medicine
PROC: 027135Z Dilation of Coronary Artery, Two Arteries with Two Drug-eluting Intraluminal Devices, Percutaneous Approach (ICD-10-PCS; principal; 2022-06-26)
PROC: 4A023N7 Measurement of Cardiac Sampling and Pressure, Left Heart, Percutaneous Approach (ICD-10-PCS; 2022-06-26)
PROC: B211YZZ Fluoroscopy of Multiple Coronary Arteries using Other Contrast (ICD-10-PCS; 2022-06-26)
DX: N39.0 Urinary tract infection, site not specified (principal); N17.0 Acute kidney failure with tubular necrosis; G93.41 Metabolic encephalopathy; I21.A1 Myocardial infarction type 2; E43 Unspecified severe protein-calorie malnutrition; G82.20 Paraplegia, unspecified; I42.9 Cardiomyopathy, unspecified; E88.09 Other disorders of plasma-protein metabolism, not elsewhere classified; I25.10 Atherosclerotic heart disease of native coronary artery without angina pectoris; E11.22 Type 2 diabetes mellitus with diabetic chronic kidney disease; N13.6 Pyonephrosis; Z93.3 Colostomy status; Z86.16 Personal history of COVID-19; Z85.9 Personal history of malignant neoplasm, unspecified; M21.372 Foot drop, left foot; M21.371 Foot drop, right foot; I12.9 Hypertensive chronic kidney disease with stage 1 through stage 4 chronic kidney disease, or unspecified chronic kidney disease; N18.9 Chronic kidney disease, unspecified; Z79.4 Long term (current) use of insulin; Z79.82 Long term (current) use of aspirin; Z79.899 Other long term (current) drug therapy; Z79.84 Long term (current) use of oral hypoglycemic drugs; Z87.448 Personal history of other diseases of urinary system; E86.1 Hypovolemia; B96.89 Other specified bacterial agents as the cause of diseases classified elsewhere
CPT/HCPCS: 36415; 71045-TC; 76770-TC; 80048-TC; 80061-TC; 80076-TC; 81001; 82570-TC; 82962-TC; 83605-TC; 83735-TC; 84100-TC; 84300-TC; 84484-TC; 85025-TC; 85347; 85730-TC; 86225; 86235; 86706; 86803; 87040-TC; 87081-TC; 87086-TC; 93307-TC; 97112-TC; 97530-TC; A4223; A6403; C1725; C1769; C1887; C9113; C9601; C9803; G0378; G0500; J0360; J1644; J1815; J2250; J2405; J2543; J3010; J3480; J3490; J7030; J7060; J7120; Q9967